=== PATIENT | male | born 1970 | race Caucasian/White ===

== ENCOUNTER 2024-08-02 19:06 | Emergency (ER) | payer SELFPAY ==
[~2024-08-02] VITALS: Ht 170.2 cm; Wt 94.0 kg
[2024-08-02 19:09] VITALS: O2SAT 98
[2024-08-02 20:00] VITALS: TEMP 36.8; O2SAT 99
[2024-08-02] MEDS: ONDANSETRON HCL 4MG/2ML INJ IV STA (20:08)
[2024-08-02 20:09] VITALS: BP 162/95; PULSE 77; RESP 18
[2024-08-02] MEDS: MORPHINE SULFATE 4 MG/ML INJ (FOR IV/IM USE) IV STA (20:09)
[2024-08-02] MEDS: SODIUM CHLORIDE 0.9% 1,000 ML IV ONE (20:14)
[2024-08-02 20:21] LABS: BASOPHILS % 0.5 % (0.0-2.0); EOSINOPHILS % 0.4 % (0.0-5.0); HEMATOCRIT. 43.3 % (42.0-52.0); HEMOGLOBIN. 14.8 g/dL (14.0-18.0); LYMPHOCYTES % 14.6 % (20.0-50.0); MEAN CORPUSCULAR HEMOGLOBIN 30.5 pg (28.0-32.0); MEAN CORPUSCULAR HGB CONC 34.2 g/dL (31.0-37.0); MEAN CORPUSCULAR VOLUME 89.1 fL (80.0-94.0); MEAN PLATELET VOLUME 8.7 fl (7.4-10.4); MONOCYTES % 6.6 % (2.0-8.0); NEUTROPHILS % 77.9 % (40.0-76.0); PLATELET 203 x1000/uL (130-400); RED BLOOD CELL COUNT 4.86 mill/uL (4.7-6.1); RED CELL DISTRIBUTION WIDTH 13.3 % (11.6-14.6); WHITE BLOOD COUNT 10.1 x1000/uL (4.5-11.0)
[2024-08-02 20:31] LABS: CHLORIDE 106 mEq/L (98-107); POTASSIUM 4.1 mEq/L (3.5-5.1); SODIUM 136 mEq/L (136-145)
[2024-08-02 20:32] LABS: CALCIUM 9.7 mg/dL (8.7-10.4); CARBON DIOXIDE 22 mEq/L (21-32)
[2024-08-02 20:37] LABS: CREATININE 1.1 mg/dL (0.6-1.3); GLUCOSE 106 mg/dL (70-105); UREA NITROGEN BLOOD 15 mg/dL (9-23)
[2024-08-02 21:17] LABS: CLARITY URINE CLOUDY (CLEAR); COLOR URINE YELLOW (YELLOW); GLUCOSE URINE NEGATIVE (NEGATIVE); KETONES URINE TRACE (NEGATIVE); LEUKOCYTE ESTERASE URINE NEGATIVE (NEGATIVE); NITRITE URINE NEGATIVE (NEGATIVE); OCCULT BLOOD URINE 3+ (NEGATIVE); PH URINE 6.5 (4.5-8.0); PROTEIN URINE TRACE (NEGATIVE); SPECIFIC GRAVITY URINE 1.023 (1.005-1.030)
[2024-08-02 21:34] LABS: *AMPHETAMINES SCREEN URINE PRESUMPTIVE POSITIVE (NEGATIVE); *BENZODIAZEPINES SCREEN URINE NEGATIVE (NEGATIVE)
[2024-08-02 21:35] LABS: *BARBITURATES SCREEN URINE NEGATIVE (NEGATIVE); *COCAINE SCREEN URINE NEGATIVE (NEGATIVE); CANNABINOID URINE SCREEN NEGATIVE (NEGATIVE); ECSTASY MDMA SCREEN URINE NEGATIVE (NEGATIVE); METHADONE URINE SCREEN NEGATIVE (NEGATIVE); OPIATES URINE SCREEN NEGATIVE (NEGATIVE); PHENCYCLIDINE URINE SCREEN NEGATIVE (NEGATIVE)
[2024-08-02 21:38] LABS: RBC URINE 50-100 /hpf (0-2); SQUAMOUS EPITHELIAL CELL URINE FEW /lpf (RARE/1+); WBC URINE NONE SEEN /hpf (0-2)
[2024-08-02 21:39] LABS: BACTERIA URINE NONE SEEN
[2024-08-03] MEDS ORDERED: TAMS-54 MT (00:59)
[2024-08-03] MEDS ORDERED: ONDA-239 PO (00:59)
[2024-08-03] MEDS ORDERED: HYDR-4009 MT (01:26)
== END 2024-08-03 04:23 | disposition home or self-care (01) ==
LOC: ER 19:06
DX: F15.90 Other stimulant use, unspecified, uncomplicated (principal); R10.31 Right lower quadrant pain; Z87.442 Personal history of urinary calculi; Z59.02 Unsheltered homelessness; Z79.899 Other long term (current) drug therapy
CPT/HCPCS: 99285; 74176; 96374; 96361; 96375; 80305; 80048; 83690; 85025; 36415; 81003; J2405; J2270; J7030; A4606